=== PATIENT | male | born 1975 ===

== ENCOUNTER 2019-09-25 18:42 | Emergency (ER) | payer BC ==
[~2019-09-25 18:42] MED LIST: EPINEPHrine 1 MG/10 ML Abboject SYRINGE ONE
[2019-09-25 19:01] LABS: INR-International Normal Ratio 1.2; PTT 38.7 SEC (22.9-36.1); Prothrombin Time 15.3 SEC (12.0-14.7)
[2019-09-25 19:11] LABS: ALT (SGPT) 119 U/L (8-55); AST (SGOT) 109 U/L (5-34); Albumin 3.8 g/dL (3.5-5.0); Alkaline Phosphatase 87 U/L (40-110); Anion Gap 34 mmol/L (10-20); BUN (Urea Nitrogen) 20 mg/dL (8.9-20.6); Bilirubin, Total 0.3 mg/dL (0.2-1.2); Calc. Creatinine Clearance 0 mL/min (70-130); Calcium 9.4 mg/dL (7.8-10.44); Carbon Dioxide 15 mmol/L (22-29); Chloride 105 mmol/L (98-107); Estimated GFR-MDRD 50; Globulin 2.4 g/dL (2.4-3.5); Glucose 161 mg/dL (70-105); Potassium 3.7 mmol/L (3.5-5.1); Protein, Total 6.2 g/dL (6.0-8.3); Sodium 150 mmol/L (136-145)
[2019-09-25 19:13] LABS: CKMB 2.9 ng/mL (0-6.6); Troponin I 0.275 ng/mL (< 0.028)
[2019-09-25 19:15] LABS: Mean Corpuscular HGB CONC 30.1 g/dL (32.0-36.0); Mean Corpuscular Hemoglobin 27.7 pg (27.0-31.0); Platelet Count 194 thou/uL (130-400); RBC Distribution Width 13.1 % (11.5-14.5); Red Blood Cell (RBC) Count 5.41 mill/uL (4.70-6.10); White Blood Cell (WBC) Count 13.2 thou/uL (4.8-10.8)
[2019-09-25 19:16] LABS: Band 3 % (5-11); Eosinophils 4 % (0-10); Lymphocytes 52 % (21-51); MDiff Complete? YES; Monocytes 3 % (0-10); Myelocyte 1 % (0-0); Neutrophil 24 % (42-75); Platelet Morphology Comment Appears Adequate; RBC Morphology Normal; Reactive Lymphocytes 13 % (0-10)
== END 2019-09-25 21:05 | disposition expired ==
LOC: MADERS 18:42
DX: I46.9 Cardiac arrest, cause unspecified (principal)
CPT/HCPCS: 31500; 80053; 82553; 84484; 85025; 85610; 85730; 92950; 96374; 96376; J0171